=== PATIENT | male | born 1965 | race Caucasian/White ===

== ENCOUNTER 2021-08-10 17:05 | Emergency (ER) | payer OTHER ==
[~2021-08-10] VITALS: Ht 180.3 cm; Wt 129.0 kg
[2021-08-10] MEDS ORDERED: ORPHENADRINE CITRATE 60 MG/2 ML VIAL. IM ONE (17:30)
[2021-08-10] MEDS ORDERED: KETOROLAC 60 MG/2 ML VIAL. IM ONE (17:30)
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
[2021-08-10] MEDS ORDERED: CYCL10TA19 PO (20:26)
[2021-08-10 20:50] VITALS: BP 154/99
== END 2021-08-10 20:50 | disposition home or self-care (01) ==
LOC: ER 17:05
DX: S50.312A Abrasion of left elbow, initial encounter (principal); M79.631 Pain in right forearm; M54.59 Other low back pain; M43.6 Torticollis; V89.2XXA Person injured in unspecified motor-vehicle accident, traffic, initial encounter; Y93.89 Activity, other specified; Y92.89 Other specified places as the place of occurrence of the external cause; Y99.8 Other external cause status
CPT/HCPCS: 70450; 72125; 72131; 73080; 73090; 96372; 99285; J1885; J2360